=== PATIENT | female | born 1965 | race Caucasian/White ===

== ENCOUNTER 2017-07-03 10:03 | Outpatient (CLI) | payer OTHER, BC | END 2017-07-03 10:04 | disposition home or self-care (01) | LOC: BICRAD 10:03 | PROVIDERS: ATTEND Allergy & Immunology | DX: R05 Cough (principal) | CPT/HCPCS: 71046 ==

== ENCOUNTER 2017-07-21 15:04 | Outpatient (CLI) | payer OTHER, BC ==
[~2017-07-21 15:04] MED LIST: Iopamidol 370 76% 100 ML VIAL ONE
== END 2017-07-21 15:05 | disposition home or self-care (01) ==
LOC: BICCT 15:04
PROVIDERS: ATTEND Allergy & Immunology
DX: R05 Cough; K57.30 Diverticulosis of large intestine without perforation or abscess without bleeding; K76.0 Fatty (change of) liver, not elsewhere classified; J43.9 Emphysema, unspecified; I25.10 Atherosclerotic heart disease of native coronary artery without angina pectoris
CPT/HCPCS: 71260

== ENCOUNTER 2017-10-27 12:06 | Outpatient (CLI) | payer OTHER, BC | END 2017-10-27 12:07 | disposition home or self-care (01) | LOC: BICMAMMO 12:06 | PROVIDERS: ATTEND Physician Assistant | DX: Z12.31 Encounter for screening mammogram for malignant neoplasm of breast (principal); Z80.3 Family history of malignant neoplasm of breast | CPT/HCPCS: 77063; 77067 ==

== ENCOUNTER 2018-01-08 07:04 | Outpatient (CLI) | payer OTHER, BC | END 2018-01-08 07:05 | disposition home or self-care (01) | LOC: BICULT 07:04 | PROVIDERS: ATTEND Family Medicine | DX: R10.9 Unspecified abdominal pain (principal); K76.0 Fatty (change of) liver, not elsewhere classified | CPT/HCPCS: 76705 ==

== ENCOUNTER 2018-01-12 07:50 | Outpatient (CLI) | payer OTHER, BC ==
--- NOTE | 2018-01-12 14:35 | NM ---
HEPATOBILIARY SCAN: Date: 01/12/18 HISTORY: Unspecified abdominal pain. RADIOPHARMACEUTICAL: 5.2 mCi technetium-99m mebrofenin injected intravenously. FINDINGS: There is good tracer extraction by the liver with prompt excretion into the biliary tract and small l oops, and normal filling of the gallbladder. The calculated gallbladder ejection fraction following a n oral fatty meal measures 73%. IMPRESSION: Normal exam. POS: SHEREE
== END 2018-01-12 07:51 | disposition home or self-care (01) ==
LOC: NM 07:50
PROVIDERS: ATTEND Family Medicine
DX: R10.9 Unspecified abdominal pain (principal)
CPT/HCPCS: 78227; A9537

== ENCOUNTER 2018-06-12 07:37 | Outpatient (CLI) | payer OTHER, BC ==
--- NOTE | 2018-06-12 08:43 | CT ---
CT ABDOMEN AND PELVIS WITH CONTRAST: HISTORY: Left lower quadrant abdominal pain for a few months. History of diverticulitis. TECHNIQUE: Multiple contiguous axial images were obtained in a CT of the abdomen and pelvis with contrast. Coleman nal reformats were performed. FINDINGS: The liver, gallbladder, kidneys, adrenal glands, spleen, and pancreas are unremarkable. There are numerous scattered diverticula in the left colon. No free air, free fluid, or standing chu nges are seen in the abdomen or pelvis. The small bowel is normal in caliber. The appendix is blake l. No abdominal or pelvic lymphadenopathy is seen. The reproductive organs are unremarkable. Mild degenerative changes are seen in the spine. The visualized inferior thorax and abdominal wall s oft tissues are unremarkable. IMPRESSION: Diverticulosis without evidence of acute diverticulitis. POS: SHEREE
[2018-06-12] MEDS ORDERED: ISOVUE-370 76%-LOCM 1 ML ONE (09:58)
== END 2018-06-12 07:38 | disposition home or self-care (01) ==
LOC: BICCT 07:37
PROVIDERS: ATTEND Family Medicine
DX: K57.92 Diverticulitis of intestine, part unspecified, without perforation or abscess without bleeding (principal); K57.30 Diverticulosis of large intestine without perforation or abscess without bleeding
CPT/HCPCS: 74177

== ENCOUNTER 2018-10-23 08:24 | Outpatient (CLI) | payer OTHER, BC ==
--- NOTE | 2018-10-23 10:31 | CT ---
CT ABDOMEN AND PELVIS: HISTORY: Abdominal pain. Intermittent cramping x3 weeks. COMPARISON: 06/12/2018 TECHNIQUE: Multiple contiguous axial images were obtained in a CT of the abdomen and pelvis with IV contrast. C oronal reformats were performed. FINDINGS: Lower Chest: Within normal limits. Vessels: Normal caliber aorta. Heart: Normal heart size. Abdomen: Portal vein: Patent. Gallbladder: No calcified gallstones. Normal caliber wall. Liver: Within normal limits. Pancreas: Within normal limits. Spleen: Within normal limits. Adrenals: Within normal limits. Kidneys: Symmetric enhancement. No obstructive uropathy. Peritoneum: Small amount of fluid in the left paracolic gutter. No mesenteric mass, lymphadenopathy , or free air. Bowel: Limited evaluation due to lack of oral contrast administration. Unremarkable gastric mucosa and small bowel loops. Ileocecal junction is normal. Normal caliber appendix. Fatty replacement of the mucosa scattered throughout the colon. Findings are nonspecific. There is extensive divertic ulosis, predominantly in the left hemicolon. There is bowel wall thickening with pericolonic fat stranding and thickening of the sigmoid mesocolon and the sigmoid colon, compatible with diverticulit is. No evidence of abscess or perforation. Mesentery and Retroperitoneum: No enlarged mesenteric or retroperitoneal lymph nodes. Abdominal Wall: Within normal limits. Pelvis: Reproductive Organs: Uterus and adnexal structures are grossly unremarkable. Pelvis: There is a collection of partially enhancing fluid in the right aspect of the pelvis, measur ing 4.9 x 4.9 cm. Attenuation coefficient is 21 Hounsfield units, suggesting complex fluid. No evidence of air. Well-formed abscess is not appreciated at this time. An early developing infected fluid collection cannot be completely excluded. Bladder: Within normal limits. Bones: Within normal limits. IMPRESSION: 1. Diverticulitis. There are associated adjacent inflammatory changes. 2. Fluid collection the right hemipelvis, which may represent a reactive fluid collection. An early infected fluid collection cannot be completely excluded; however, a well-formed abscess containing air is not appreciated at this time. Results of study discussed with Dr. Perfecto Schwarz on 10/23/2018 at 10:29 a.m. CODE CR Transcribed Date/Time: 10/23/2018 10:42 AM
[2018-10-23] MEDS ORDERED: Iopamidol 370 76% 100 ML VIAL ONE (10:34)
== END 2018-10-23 08:25 | disposition home or self-care (01) ==
LOC: CT 08:24
PROVIDERS: ATTEND Family Medicine
DX: R10.9 Unspecified abdominal pain (principal); K57.92 Diverticulitis of intestine, part unspecified, without perforation or abscess without bleeding
CPT/HCPCS: 74177; Q9967

== ENCOUNTER 2018-11-16 08:10 | Outpatient (CLI) | payer OTHER, BC ==
--- NOTE | 2018-11-16 09:22 | CT ---
CT ABDOMEN WITH CONTRAST CT PELVIS WITH CONTRAST: DATE: 11/16/18 HISTORY: 53-year-old female with diverticulitis and intrapelvic abscess. Follow-up after antibiotic treatment. COMPARISON: 10/23/18. TECHNIQUE: IV injection of iodinated contrast media: 75 mL [id number]. Oral contrast media: Not administered. FINDINGS: Lung bases are grossly clear. No pneumoperitoneum. Atherosclerotic calcification without aneurysm of abdominal aorta and common iliac arteries. Essentially normal bilateral kidneys, adrenals, pancreas, liver, spleen, and appendix. No pneumoperitoneum. No small bowel dilation. Multiple diverticula throughout descending colon and sigmoid colon. Again noted is the fat stranding representing edema around the sigmoid colon. This has slightly improved. In addition to a tiny amount of free fluid around the sigmoid colon, there is a thin-walled intrapelvic fluid collection within t he right posterior aspect of the pelvic cavity. It was previously measured as 4.9 x 4.9 x 4.6 cm. Cur rent dimensions are 6.0 x 5.8 x 3.9 cm. Fat stranding surrounding this collection is minimal/mild. Th e fluid collection does not contain gas. Unremarkable urinary bladder. The current density of the int rapelvic fluid collection is 17 Hounsfield units. It may or may not be an abscess. IMPRESSION: 1. Sigmoid colonic diverticulitis, with mild improvement since 10/23/18. 2. Mild interval increase in volume of the right-sided intrapelvic fluid collection. JNR POS: CET
[2018-11-16] MEDS ORDERED: Iopamidol 370 76% 100 ML VIAL ONE (13:32)
== END 2018-11-16 08:11 | disposition home or self-care (01) ==
LOC: CT 08:10
PROVIDERS: ATTEND Physician Assistant Medical
DX: R10.9 Unspecified abdominal pain (principal); K57.32 Diverticulitis of large intestine without perforation or abscess without bleeding
CPT/HCPCS: 74177

== ENCOUNTER 2018-12-19 16:28 | Outpatient (CLI) | payer OTHER, BC ==
--- NOTE | 2018-12-20 08:10 | MMO ---
Bilateral MAMMO Bilat Screen [facility]. CLINICAL HISTORY: Patient is 53 years old and is seen for screening. The patient has the following family history of breast cancer: mother. The patient has no personal history of cancer. VIEWS: The views performed were: bilateral craniocaudal with tomosynthesis; bilateral mediolateral oblique with tomosynthesis; and right exaggerated craniocaudal. FILMS COMPARED: The present examination has been compared to prior imaging studies performed at [facility] on 07/11/2014, 07/21/2015, 08/03/2016 and 10/27/2017. MAMMOGRAM FINDINGS: The breasts are heterogeneously dense, which could obscure a lesion on mammography. There are stable benign appearing calcifications seen in both breasts. There are no suspicious masses, suspicious calcifications, or new areas of architectural distortion. IMPRESSION: THERE IS NO MAMMOGRAPHIC EVIDENCE OF MALIGNANCY. A ROUTINE FOLLOW-UP MAMMOGRAM IN 1 YEAR IS RECOMMENDED. THE RESULTS OF THIS EXAM WERE SENT TO THE PATIENT. ACR BI-RADS Category 2 - Benign finding MAMMOGRAPHY NOTE: 1. A negative mammogram report should not delay a biopsy if a dominant of clinically suspicious mass is present. 2. Approximately 10% to 15% of breast cancers are not detected by mammography. 3. Adenosis and dense breasts may obscure an underlying neoplasm. Reported by: DEVANTE CAVAZOS MD Electonically Signed: [id number]
== END 2018-12-19 16:29 | disposition home or self-care (01) ==
LOC: BICMAMMO 16:28
PROVIDERS: ATTEND Family Medicine
DX: Z12.31 Encounter for screening mammogram for malignant neoplasm of breast (principal); Z80.3 Family history of malignant neoplasm of breast
CPT/HCPCS: 77063; 77067

== ENCOUNTER 2019-01-16 11:35 | Inpatient (IN) | payer OTHER, BC ==
[2019-01-16] MEDS ORDERED: Ondansetron PF 4 MG/2 ML Vial SLOW IVP PRN (14:56)
[2019-01-16] MEDS ORDERED: Fentanyl 100 MCG/2 ML VIAL SLOW IVP PRN (14:57)
[2019-01-16] MEDS ORDERED: Sodium Chloride 0.9% 1,000 ML IV SCH (15:00)
[2019-01-16] MEDS ORDERED: Piperacillin/Tazobactam 3.375 GM in Sodium Chloride 0.9% 100 ML IVPB SCH (15:00)
[2019-01-16 15:56] LABS: #Basophils 0.1 thou/uL (0.0-0.2); #Eosinphils 0.1 thou/uL (0.0-0.7); #Lymphocytes 2.2 thou/uL (1.20-3.40); #Monocytes 0.9 thou/uL (0.11-0.59); #Neutrophils 9.8 thou/uL (1.40-6.50); %Basophils 0.9 % (0.0-1.0); %Eosinophils 0.8 % (0.0-10.0); %Lymphocytes 16.7 % (21.0-51.0); %Monocytes 7.1 % (0.0-10.0); %Neutrophils 74.5 % (42.0-75.0); Hemoglobin 14.9 g/dL (12.0-16.0); Mean Corpuscular HGB CONC 33.4 g/dL (32.0-36.0); Mean Corpuscular Volume 92.9 fL (78.0-98.0); Mean Platelet Volume 7.2 fL (7.4-10.4); Platelet Count 260 thou/uL (130-400); RBC Distribution Width 12.7 % (11.5-14.5); White Blood Cell (WBC) Count 13.2 thou/uL (4.8-10.8)
[2019-01-16 16:18] LABS: Anion Gap 12 mmol/L (10-20); BUN (Urea Nitrogen) 6 mg/dL (9.8-20.1); Calc. Creatinine Clearance 0 mL/min (70-130); Calcium 9.1 mg/dL (7.8-10.44); Carbon Dioxide 24 mmol/L (22-29); Chloride 102 mmol/L (98-107); Estimated GFR-MDRD 81; Glucose 80 mg/dL (70-105); Potassium 3.6 mmol/L (3.5-5.1); Sodium 134 mmol/L (136-145)
[2019-01-16 16:20] VITALS: BMI 32.5
[2019-01-16] MEDS: Acetaminophen 1,000 MG in Premix Bag 1 BAG IVPB PRN (16:53)
--- NOTE | 2019-01-16 16:57 | HP ---
CHIEF COMPLAINT: Diverticulitis. HISTORY OF PRESENT ILLNESS: This is a 53-year-old female with a history of acute diverticulitis. I recently saw in the office. She had had a couple of bouts of diverticulitis that would recur every time she stopped antibiotics. On followup CAT scan, she had a fluid collection in her pelvis. This was drained and it grew no bacteria. It was serous. No purulence. She did have improvement in her symptoms for a week or two. Pain returned late last week. Started back on Augmentin. Yesterday, her pain became more severe, described as 8/10, sharp in the left lower quadrant, associated with anorexia, nausea, but no vomiting, no change in stools. PAST MEDICAL HISTORY: Includes hyperlipidemia, anxiety, kidney stones, diverticulitis. SURGICAL HISTORY: Colonoscopy. MEDICATIONS: Medicines taken daily at home; 1. Zetia. 2. Cetirizine. 3. Alprazolam. 4. Augmentin. SOCIAL HISTORY: Former smoker. No alcohol. No drugs. REVIEW OF SYSTEMS: Ten-system review of systems otherwise negative unless described above. PHYSICAL EXAMINATION: HEENT: Sclerae are anicteric. Oropharynx is clear. NECK: No lymphadenopathy. CHEST: Clear. HEART: Regular rate and rhythm. ABDOMEN: Soft, tender in left lower quadrant with localized guarding. No rebound. No abdominal hernias. EXTREMITIES: No ischemia or edema to extremities. LABORATORY DATA: White blood cell count is 13, hemoglobin 14, normal differential. Sodium 134, potassium 3.6, creatinine 0.74. CT scan of the abdomen and pelvis is pending. ASSESSMENT: Acute on chronic diverticulitis. PLAN: Reassess her abdomen with CT scan. She may need to have surgery during this hospitalization. IV antibiotics for now. Job ID: [id number]
[2019-01-16] MEDS: Piperacillin/Tazobactam 3.375 GM in Sodium Chloride 0.9% 100 ML IVPB SCH (18:04)
[2019-01-16] MEDS: Sodium Chloride 0.9% 1,000 ML IV SCH (18:05)
[2019-01-16] MEDS: Fentanyl 100 MCG/2 ML VIAL SLOW IVP PRN ×2 (18:11→21:43)
--- NOTE | 2019-01-16 18:40 | CT ---
CT ABDOMEN WITH CONTRAST CT PELVIS WITH CONTRAST: DATE: 01/16/2019 HISTORY: 53 year old female with left lower quadrant abdominal pain and fever. COMPARISON: 11/16/2018 TECHNIQUE: IV injection of iodinated contrast media: administered. Oral contrast media:Administered FINDINGS: There is a new finding of fat stranding representing edema around proximal sigmoid colon, where there is mural thickening and fold thickening. Large number of diverticula throughout the descending and sigmoid colon. Previously demonstrated focal fluid collection within the pelvic cavity has almost completely resolve d. Minimal amount of free fluid in the pelvic cavity now. No abscess. Appendix is 7 mm in caliber. No periappendiceal fat stranding. Appendix appears to have diffuse mural thickening and no oral contrast material in its lumen. However, mural and fold thickening is also visualized in the cecum and lower ascending colon, and this may be an extension of the process into t he appendix rather than primary acute appendicitis. No small bowel dilation. No abdominal aortic aneurysm. Unremarkable bilateral kidneys, adrenals, panc reas, liver, and spleen. Lung bases are clear. Normal urinary bladder. IMPRESSION: 1. Recurrent acute diverticulitis involving proximal sigmoid colon. 2. Equivocal findings involving appendix. Recommend short-term follow-up.
[2019-01-16] MEDS ORDERED: ISOVUE-370 76%-LOCM 1 ML ONE (20:45)
[2019-01-16] MEDS: Pantoprazole 40 MG VIAL IVP SCH (21:36)
[2019-01-17] MEDS: Piperacillin/Tazobactam 3.375 GM in Sodium Chloride 0.9% 100 ML IVPB SCH ×5 (00:13→23:56)
[2019-01-17] MEDS: Sodium Chloride 0.9% 1,000 ML IV SCH ×4 (00:13→23:56)
[2019-01-17] MEDS ORDERED: FLU VACC QS2019-20(6MOS UP)/PF 60 MCG/0.5 ML SYRINGE IM ONE (09:00)
[2019-01-17] MEDS: Acetaminophen 1,000 MG in Premix Bag 1 BAG IVPB PRN (09:34)
--- NOTE | 2019-01-17 10:21 | PDOC.GSPN ---
Surgery Progress Note: Subj - Subjective Patient reports: feels better (but pain not completely gone) Surgery Progress Note: Obj - Vital signs Vital signs: Vital Signs - Most Recent Temp Pulse Resp BP Pulse Ox 98.2 F 87 16 114/70 94 L 01/17/19 07:30 01/17/19 07:30 01/17/19 07:30 01/17/19 07:30 01/17/19 07:30 - Physical Exam General: no distress Cardiovascular: regular rate and rhythm Respiratory: clear to auscultation Abdomen: soft, tender (in the left lower quadrant with guarding) Surgery Progress Note: Results - Labs Result Diagrams: 01/16/19 15:50 01/16/19 15:50 Surgery Progress Note: A/P - Problem (1) Diverticulitis Current Visit: Yes Code(s): K57.92 - DVTRCLI OF INTEST, PART UNSP, W/O PERF OR ABSCESS W/O BLEED Status: Chronic - Plan Plan: CT shows no abscess or perforation but I expect symptoms to continue to recur -Plan resection tomorrow if able. -Prep today if able to do tomorrow
[2019-01-17] MEDS ORDERED: Bisacodyl 5 MG TAB PO SCH (12:00)
[2019-01-17] MEDS ORDERED: Polyethylene Glycol 3350 17 GM Packet PO SCH (12:15)
--- NOTE | 2019-01-17 20:16 | EKG ---
Test Reason : Blood Pressure : / mmHG Vent. Rate : 081 BPM Atrial Rate : 081 BPM P-R Int : 120 ms QRS Dur : 070 ms QT Int : 368 ms P-R-T Axes : 066 051 051 degrees QTc Int : 427 ms Normal sinus rhythm Nonspecific T wave abnormality Abnormal ECG Confirmed by MAGALIE PAN, DR. Lozoya ([id number]) on 01/17/2019 8:16:09 PM Referred By: MARIELLA Confirmed By:DR. Devora MEJIAS MD
[2019-01-17] MEDS: Pantoprazole 40 MG VIAL IVP SCH (20:27)
[2019-01-18] MEDS: Piperacillin/Tazobactam 3.375 GM in Sodium Chloride 0.9% 100 ML IVPB SCH ×2 (05:36→18:46)
[2019-01-18] MEDS ORDERED: Acetaminophen 1,000 MG in Premix Bag 1 BAG IVPB PRN (06:55)
[2019-01-18] MEDS ORDERED: Bupivacaine HCl 0.5%/Epinephrine 1:200,000/PF 30 ml Vial ONE (10:50)
[2019-01-18] MEDS ORDERED: Midazolam HCl 2 mg/2 ml Vial ONE ×3 (11:32→12:53)
[2019-01-18] MEDS ORDERED: Fentanyl 100 MCG/2 ML VIAL ONE ×3 (11:32→12:53)
[2019-01-18] MEDS ORDERED: PROPOFOL 200 MG/20 ML VIAL ONE (11:35)
[2019-01-18] MEDS ORDERED: PHENYLEPHRINE-NS 100 MCG/ML 10 ML SYRINGE ONE (11:35)
[2019-01-18] MEDS ORDERED: Ketorolac Tromethamine 30 MG/ML VIAL ONE (11:35)
[2019-01-18] MEDS ORDERED: Dexamethasone 20 MG/5 ML VIAL ONE (11:35)
[2019-01-18] MEDS ORDERED: Lidocaine 1% PF 5 ML VIAL ONE (11:35)
[2019-01-18] MEDS ORDERED: Ondansetron PF 4 MG/2 ML Vial ONE (11:35)
[2019-01-18] MEDS ORDERED: Rocuronium Bromide 10 MG/ML (10ML VIAL) ONE (11:35)
[2019-01-18] MEDS ORDERED: Glycopyrrolate 0.2 MG/ML 5 ML SYRINGE ONE (11:35)
[2019-01-18] MEDS ORDERED: Dexamethasone 4 mg/ml Vial ONE (12:30)
[2019-01-18] MEDS ORDERED: HYDROmorphone 2 MG/ML VIAL SLOW IVP PRN (15:29)
[2019-01-18] MEDS ORDERED: PACU-Morphine 4MG/ML VIAL SLOW IVP PRN (15:29)
[2019-01-18] MEDS ORDERED: Promethazine HCl 25 MG/ML VIAL SLOW IVP PRN (15:29)
[2019-01-18] MEDS ORDERED: Ondansetron HCl/PF 4 MG/2 ML Vial IVP PRN (15:29)
[2019-01-18] MEDS ORDERED: Promethazine HCl 25 MG/ML VIAL IM PRN ×2 (15:29→15:43)
[2019-01-18] MEDS ORDERED: SUGAMMADEX SODIUM 200 MG/2 ML VIAL ONE (15:33)
[2019-01-18] MEDS ORDERED: Ketorolac Tromethamine 30 MG/ML VIAL IVP PRN (15:43)
[2019-01-18] MEDS ORDERED: Ondansetron PF 4 MG/2 ML Vial IVP PRN (15:43)
[2019-01-18] MEDS ORDERED: Fentanyl 100 MCG/2 ML VIAL SLOW IVP PRN (15:43)
[2019-01-18] MEDS ORDERED: hydrALAZINE 20 MG/ML VIAL SLOW IVP PRN (15:43)
[2019-01-18] MEDS: Sodium Chloride 0.9% 1,000 ML IV SCH ×2 (16:59→18:46)
[2019-01-18] MEDS: cefOXitin Sodium/Dextrose,Iso 1 GM in Premix Bag 50 BAG IVPB SCH (17:00)
[2019-01-18] MEDS: Fentanyl 100 MCG/2 ML VIAL SLOW IVP PRN ×3 (17:01→20:56)
[2019-01-18] MEDS: Acetaminophen 1,000 MG in Premix Bag 1 BAG IVPB SCH (18:14)
--- NOTE | 2019-01-18 19:28 | OP ---
DATE OF PROCEDURE: 01/18/2019 PREOPERATIVE DIAGNOSIS: Acute on chronic diverticulitis. POSTOPERATIVE DIAGNOSIS: Acute on chronic diverticulitis. PROCEDURES PERFORMED: Laparoscopic converted to open sigmoid colectomy with low anterior anastomosis, splenic flexure mobilization. ANESTHESIA: General. ESTIMATED BLOOD LOSS: 200 mL. COMPLICATIONS: None. FINDINGS: Significant local inflammatory change in the pelvis. DESCRIPTION OF PROCEDURE: The patient was taken to the operating room and laid supine on the operating table. After general anesthetic was obtained, the abdomen was shaved, prepped, and draped in a sterile fashion. The patient had been placed in lithotomy and a Jones was placed. Left subcostal 5 mm Optiview trocar was placed in the usual fashion. High-flow pneumoperitoneum was obtained. Left lower quadrant 5 mm port was placed. The omentum was not able to be retracted out of the pelvis even after placing the patient in Trendelenburg position due to the dense inflammatory adhesions. Decision made to open, midline incision was made. Cautery dissected down into the abdominal cavity. Bookwalter retractor was placed. Left colon was mobilized along the white line of Toldt. The ureter was found and excluded from the dissection. Dissection was taken down into the pelvis where some dense adhesions were taken down from the posterior uterus and the left pelvic sidewall. The left ureter was found and excluded from all this dissection and not injured. Dissection was taken down into the pelvis and the upper rectum was mobilized by using cautery. A stapler was fired across the upper rectum. The mesentery for the colon including the superior rectal and the inferior mesenteric artery all taken using the Impact LigaSure. The colon was mobilized up along the white line of Toldt and the splenic flexure was mobilized in the usual fashion. There was a small tear in the serosa of the spleen that was managed with Surgicel and Gil. The distal transverse colon was able to brought down in the pelvis under no tension. Colotomy was made just distal to this and the 31 anvil passed proximally, its sharp end brought down on the antimesenteric surface of the colon above. Reload on the stapler was fired just distal to this. This was able to reach down in the pelvis under no tension. The base of the EEA was brought up through the anus and its sharp end brought down on the antimesenteric surface of the rectal stump below, connected to the stapler from above and this was fired forming the anastomosis. The anastomosis was tested using air insufflation under water. There was no leakage. The anastomosis was oversewn using silk pop offs. The abdomen was irrigated. There was no ongoing bleeding. All instrument counts, needle counts, and lap counts were correct. Seprafilm was placed in the abdomen and the fascia was closed using #1 PDS from the top and the bottom tied in the middle. Subcutaneous tissues were irrigated and closed using 3-0 Vicryl, 4-0 Monocryl, and Dermabond. The patient was sent to Recovery in stable condition. All instrument counts, needle counts, and lap counts were correct. Job ID: [id number]
[2019-01-18] MEDS: Famotidine/PF 20 mg/2ml Vial SLOW IVP SCH (20:56)
[2019-01-18] MEDS: Famotidine 20 MG TAB PO SCH (21:01)
[2019-01-18] MEDS ORDERED: diphenhydrAMINE 50 MG/ML VIAL IVP PRN (21:59)
[2019-01-18] MEDS: fentaNYL Citrate/PF 2,000 MCG in Sodium Chloride 0.9% 60 ML IV PRN (22:26)
[2019-01-19] MEDS: cefOXitin Sodium/Dextrose,Iso 1 GM in Premix Bag 50 BAG IVPB SCH (00:46)
[2019-01-19] MEDS: Acetaminophen 1,000 MG in Premix Bag 1 BAG IVPB SCH ×3 (00:46→12:52)
[2019-01-19] MEDS ORDERED: Ketorolac Tromethamine 30 MG/ML VIAL IVP SCH ×2 (02:00→10:00)
[2019-01-19] MEDS: Sodium Chloride 0.9% 1,000 ML IV SCH (02:07)
[2019-01-19 04:45] LABS: #Lymphocytes 1.2 thou/uL (1.20-3.40); #Neutrophils 8.2 thou/uL (1.40-6.50); %Basophils 0.1 % (0.0-1.0); %Eosinophils 0.2 % (0.0-10.0); %Lymphocytes 11.4 % (21.0-51.0); %Monocytes 9.6 % (0.0-10.0); %Neutrophils 78.7 % (42.0-75.0); Hemoglobin 11.4 g/dL (12.0-16.0); Mean Corpuscular Hemoglobin 31.8 pg (27.0-31.0); Mean Corpuscular Volume 93.6 fL (78.0-98.0); Mean Platelet Volume 7.2 fL (7.4-10.4); Platelet Count 257 thou/uL (130-400); RBC Distribution Width 12.5 % (11.5-14.5); Red Blood Cell (RBC) Count 3.59 mill/uL (4.20-5.40); White Blood Cell (WBC) Count 10.4 thou/uL (4.8-10.8)
[2019-01-19 05:04] LABS: Anion Gap 16 mmol/L (10-20); BUN (Urea Nitrogen) 6 mg/dL (9.8-20.1); Calc. Creatinine Clearance 117 mL/min (70-130); Calcium 7.8 mg/dL (7.8-10.44); Carbon Dioxide 15 mmol/L (22-29); Chloride 110 mmol/L (98-107); Estimated GFR-MDRD Greater than 90; Glucose 99 mg/dL (70-105); Potassium 3.6 mmol/L (3.5-5.1); Sodium 137 mmol/L (136-145)
[2019-01-19] MEDS ORDERED: Sodium Chloride 0.9% 1,000 ML IV SCH (07:53)
[2019-01-19] MEDS: Famotidine 20 MG TAB PO SCH ×2 (08:17→20:12)
[2019-01-19] MEDS: Famotidine/PF 20 mg/2ml Vial SLOW IVP SCH ×2 (08:19→20:12)
--- NOTE | 2019-01-19 09:51 | PRG ---
DATE OF SERVICE: 01/19/2019 SUBJECTIVE: Postop day #1, Ms. Manriquez is having pain, but it is controlled with the [employer]. She has already walked this morning. No significant nausea. She is tolerating clear liquid diet without difficulty. OBJECTIVE: VITAL SIGNS: She is afebrile. Vital signs are stable. ABDOMEN: Soft, minimally distended. Midline incision, healing well. LABORATORY DATA: White blood cell count is 10 and hemoglobin 11. Creatinine is 0.67. ASSESSMENT: Postop day #1, sigmoid colectomy with anastomosis. PLAN: Advance to full liquid diet. TKO IV fluids. Probably home tomorrow or Monday. Job ID: [id number]
[2019-01-20] MEDS: fentaNYL Citrate/PF 2,000 MCG in Sodium Chloride 0.9% 60 ML IV PRN (04:28)
[2019-01-20] MEDS: Famotidine 20 MG TAB PO SCH ×2 (08:13→20:09)
[2019-01-20] MEDS: Famotidine/PF 20 mg/2ml Vial SLOW IVP SCH (08:22)
[2019-01-20] MEDS ORDERED: HYDROcodone/Acetaminophen 10/325 mg Tablet PO PRN ×3 (09:59→10:03)
[2019-01-20] MEDS: HYDROcodone/Acetaminophen 10/325 mg Tablet PO PRN ×3 (10:33→20:18)
--- NOTE | 2019-01-20 10:34 | PRG ---
DATE OF SERVICE: 01/20/2019 SUBJECTIVE: She is doing well. She tolerated the full liquid diet. She has some mild bloating. OBJECTIVE: VITAL SIGNS: She is afebrile. Vital signs are stable. ABDOMEN: Soft and nontender. Her wounds are healing well. ASSESSMENT: Postop day 2, sigmoid colectomy. 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 Discontinue IV fluids. Stay on full liquid diet. Likely home tomorrow if tolerates. Job ID: [id number]
[2019-01-20] MEDS: Enoxaparin Sodium 40 MG/0.4 ML SYRINGE SC SCH (20:09)
[2019-01-21] MEDS: HYDROcodone/Acetaminophen 10/325 mg Tablet PO PRN ×2 (02:09→08:11)
[2019-01-21] MEDS: Piperacillin/Tazobactam 3.375 GM in Sodium Chloride 0.9% 100 ML IVPB SCH ×2 (02:50→08:11)
[2019-01-21 06:09] LABS: #Basophils 0.1 thou/uL (0.0-0.2); #Eosinphils 0.3 thou/uL (0.0-0.7); #Lymphocytes 2.8 thou/uL (1.20-3.40); #Monocytes 0.8 thou/uL (0.11-0.59); #Neutrophils 5.6 thou/uL (1.40-6.50); %Basophils 0.8 % (0.0-1.0); %Eosinophils 2.7 % (0.0-10.0); %Lymphocytes 29.9 % (21.0-51.0); %Neutrophils 58.6 % (42.0-75.0); Mean Corpuscular HGB CONC 33.9 g/dL (32.0-36.0); Mean Corpuscular Hemoglobin 31.3 pg (27.0-31.0); Mean Corpuscular Volume 92.3 fL (78.0-98.0); Mean Platelet Volume 7.1 fL (7.4-10.4); Platelet Count 286 thou/uL (130-400); RBC Distribution Width 12.8 % (11.5-14.5); Red Blood Cell (RBC) Count 3.51 mill/uL (4.20-5.40); White Blood Cell (WBC) Count 9.5 thou/uL (4.8-10.8)
[2019-01-21] MEDS: Famotidine 20 MG TAB PO SCH ×2 (08:10→20:19)
--- NOTE | 2019-01-21 09:17 | PDOC.GSPN ---
Surgery Progress Note: Subj - Subjective Patient reports: positive flatus, pain well controlled (2/ with hydrocodone), tolerating liquids well (Has moved onto thick liquids since Monday night - low appetite but eating a few bites at each meal) Narrative: Pt is s/p sigmoid colectomy for chronic diverticulitis and is post-op day 3. Patient has done well advancing diet on liquids, and has begun to pass flatus since yesterday. She still has not had a BM post-surgery. Pt also developed red area with warmth spreading out from the right edge of the suture line yesterday , for which she was started on Zosyn by the night team. Pt denies fevers or chills. Pt continues to ambulate several times per day, and has no urinary complaints or difficulty. Surgery Progress Note: Obj - Vital signs Vital signs: Vital Signs - Most Recent Temp Pulse Resp BP Pulse Ox 98.4 F 89 20 146/78 H 95 01/21/19 04:00 01/21/19 04:00 01/21/19 04:00 01/21/19 04:00 01/21/19 04:00 - Physical Exam General: no distress Cardiovascular: regular rate and rhythm Respiratory: clear to auscultation, normal expansion, normal respiratory effort , breath sounds present Abdomen: soft, nondistended, positive bowel sounds (Low rumbling BS present.), appropriately tender Wound: erythma/edema (There is an irregular erythematous area flush with the skin spreading from the right edge of the wound. Wound care is following, and the area is slightly extended from where they last marked the edges overnight. The area is warm to the touch. No induration or edema noted.) Surgery Progress Note: Results - Labs Result Diagrams: 01/21/19 05:39 01/19/19 04:32 Lab results: Laboratory Results - last 24 hr 01/21/19 05:39 WBC 9.5 RBC 3.51 L Hgb 11.0 L Hct 32.4 L MCV 92.3 MCH 31.3 H MCHC 33.9 RDW 12.8 Plt Count 286 MPV 7.1 L Neutrophils % 58.6 Lymphocytes % 29.9 Monocytes % 8.0 Eosinophils % 2.7 Basophils % 0.8 Neutrophils # 5.6 Lymphocytes # 2.8 Monocytes # 0.8 H Eosinophils # 0.3 Basophils # 0.1 Surgery Progress Note: A/P - Problem (1) Diverticulitis Current Visit: Yes Code(s): K57.92 - DVTRCLI OF INTEST, PART UNSP, W/O PERF OR ABSCESS W/O BLEED Status: Chronic - Plan Plan: Pt is s/p sigmoid colectomy without colostomy. Pt has developed an erythematous area with warmth from the entire right edge of the midline sutures, for which she has been started on zosyn x 1 day. She has not spiked any fevers, and WBC count is WNL. Bowel sounds are reassuring, and pt has begun to pass flatus. Full liquids are tolerated well. Plan: -Continue zosyn and wound care for monitoring the erythema related to suture line -Continue full liquid diet and plan to advance as tolerated -OOB/Ambulate Addendum - Physician - Physician Attestation Date/Time: 01/21/19 1041 I personally performed or re-performed the physical examination and medical decision making. I have verified all student documentation or findings, including history, physical exam and/or medical decision making. Because she is taking PO now and tolerating will DC zosyn and start levaquin. There is no evidence of wound infection. This erythema could be localized trauma coming from right lower quadrant port or developing echymosis from retraction. Will watch closely.
[2019-01-21] MEDS ORDERED: HYDROcodone/Acetaminophen 7.5/325 mg Tablet PO PRN (10:39)
[2019-01-21] MEDS ORDERED: Fentanyl 100 MCG/2 ML VIAL SLOW IVP PRN (10:39)
[2019-01-21] MEDS: HYDROcodone/Acetaminophen 7.5/325 mg Tablet PO PRN ×2 (13:47→20:18)
[2019-01-21 16:44] VITALS: BP 147/78; TEMP 97.6
[2019-01-21] MEDS: Enoxaparin Sodium 40 MG/0.4 ML SYRINGE SC SCH (20:19)
[2019-01-22] MEDS: HYDROcodone/Acetaminophen 7.5/325 mg Tablet PO PRN ×2 (02:20→08:18)
[2019-01-22] MEDS: Famotidine 20 MG TAB PO SCH (08:19)
--- NOTE | 2019-01-22 09:13 | PDOC.GSPN ---
Surgery Progress Note: Subj - Subjective Patient reports: no new complaints, positive flatus, pain well controlled, tolerating liquids well, no bowel movement Narrative: Doing well s/p sigmoid colectomy. Pain improved today vs yesterday. No BM yet, but passing flatus. Reports previously noted abdominal erythema has resolved. Feels ready to d/c home today. Surgery Progress Note: Obj - Vital signs Vital signs: Vital Signs - Most Recent Temp Pulse Resp BP Pulse Ox 97.6 F 82 16 147/78 H 97 01/21/19 16:42 01/21/19 16:42 01/21/19 16:42 01/21/19 16:42 01/21/19 20:00 - Physical Exam General: no distress, well developed, well nourished Cardiovascular: regular rate and rhythm Respiratory: clear to auscultation, normal expansion, normal respiratory effort , breath sounds present Abdomen: appropriately tender Hernia: none Wound: healing well, other (Surgical wounds well-approximated & without erythema , exudate, flucuance. Faint oren-wound ecchymosis noted.) Surgery Progress Note: Results - Labs Result Diagrams: 01/21/19 05:39 01/19/19 04:32 Surgery Progress Note: A/P - Problem (1) Diverticulitis Current Visit: Yes Code(s): K57.92 - DVTRCLI OF INTEST, PART UNSP, W/O PERF OR ABSCESS W/O BLEED Status: Chronic - Plan Plan: Doing well s/p sigmoid colectomy for recurrent diverticulitis. Abdominal erythema noted yesterday now completely resolved. Will plan for d/c home today. Advance diet as tolerated.
--- NOTE | 2019-01-22 10:27 | PDOC.GSPN ---
Surgery Progress Note: Subj - Subjective Patient reports: feels better Surgery Progress Note: Obj - Vital signs Vital signs: Vital Signs - Most Recent Temp Pulse Resp BP Pulse Ox 97.6 F 82 16 147/78 H 97 01/21/19 16:42 01/21/19 16:42 01/21/19 16:42 01/21/19 16:42 01/21/19 20:00 - Physical Exam General: no distress Neck: no bruits Cardiovascular: regular rate and rhythm Respiratory: clear to auscultation Abdomen: soft, nondistended, appropriately tender Wound: healing well Surgery Progress Note: Results - Labs Result Diagrams: 01/21/19 05:39 01/19/19 04:32 Surgery Progress Note: A/P - Problem (1) Diverticulitis Current Visit: Yes Code(s): K57.92 - DVTRCLI OF INTEST, PART UNSP, W/O PERF OR ABSCESS W/O BLEED Status: Chronic - Plan Plan: Doing well. -DC home -milk of mag if no bm by tomorrow
== END 2019-01-22 13:00 | disposition home or self-care (01) | DRG 331 ==
LOC: SURG A 14:34
PROVIDERS: ADMIT Surgery; ATTEND Surgery
PROC: 0DTN0ZZ Resection of Sigmoid Colon, Open Approach (ICD-10-PCS; principal; 2019-01-18)
PROC: 0DJD4ZZ Inspection of Lower Intestinal Tract, Percutaneous Endoscopic Approach (ICD-10-PCS; 2019-01-18)
DX: K57.32 Diverticulitis of large intestine without perforation or abscess without bleeding (principal); E66.9 Obesity, unspecified; R63.0 Anorexia; K66.0 Peritoneal adhesions (postprocedural) (postinfection); L53.8 Other specified erythematous conditions; Z53.31 Laparoscopic surgical procedure converted to open procedure; Z87.891 Personal history of nicotine dependence; Z79.899 Other long term (current) drug therapy; Z68.32 Body mass index [BMI] 32.0-32.9, adult; Z88.8 Allergy status to other drugs, medicaments and biological substances
CPT/HCPCS: 36415; 36416; 74177; 80048; 85025; 88307; 90471; 90686; 93005; 93010; C9113; G0008; J0131; J0670; J0694; J1100; J1650; J1885; J2001; J2250; J2405; J2543; J2704; J3010; J3490; Q9966; S0028

== ENCOUNTER 2019-12-24 12:11 | Outpatient (CLI) | payer OTHER, BC ==
--- NOTE | 2019-12-24 14:07 | MMO ---
Bilateral MAMMO Bilat Screen [facility]. CLINICAL HISTORY: Patient is 54 years old and is seen for screening. The patient has the following family history of breast cancer: mother. The patient has no personal history of cancer. VIEWS: The views performed were: bilateral craniocaudal with tomosynthesis and bilateral mediolateral oblique with tomosynthesis. FILMS COMPARED: The present examination has been compared to prior imaging studies performed at [facility] on 07/21/2015, 08/03/2016, 10/27/2017 and 12/19/2018. This study has been interpreted with the assistance of computer-aided detection. MAMMOGRAM FINDINGS: There are scattered fibroglandular densities. Benign calcifications are noted bilaterally. There are no suspicious masses, suspicious calcifications, or new areas of architectural distortion. IMPRESSION: THERE IS NO MAMMOGRAPHIC EVIDENCE OF MALIGNANCY. A ROUTINE FOLLOW-UP MAMMOGRAM IN 1 YEAR IS RECOMMENDED. THE RESULTS OF THIS EXAM WERE SENT TO THE PATIENT. ACR BI-RADS Category 2 - Benign finding MAMMOGRAPHY NOTE: 1. A negative mammogram report should not delay a biopsy if a dominant of clinically suspicious mass is present. 2. Approximately 10% to 15% of breast cancers are not detected by mammography. 3. Adenosis and dense breasts may obscure an underlying neoplasm. Reported by: ANAY GOMEZ MD Electonically Signed: [id number]
== END 2019-12-24 12:12 | disposition home or self-care (01) ==
LOC: BICMAMMO 12:11
PROVIDERS: ATTEND Physician Assistant
DX: Z12.31 Encounter for screening mammogram for malignant neoplasm of breast (principal); Z80.3 Family history of malignant neoplasm of breast
CPT/HCPCS: 77063; 77067

== ENCOUNTER 2020-01-13 07:54 | Outpatient (CLI) | payer OTHER, BC ==
[2020-01-13 16:17] LABS: #Basophils 0.2 thou/uL (0.0-0.2); #Eosinphils 0.2 thou/uL (0.0-0.7); #Lymphocytes 3.7 thou/uL (1.20-3.40); #Monocytes 0.8 thou/uL (0.11-0.59); #Neutrophils 3.9 thou/uL (1.40-6.50); %Basophils 2.1 % (0.0-1.0); %Eosinophils 2.7 % (0.0-10.0); %Lymphocytes 41.9 % (21.0-51.0); %Monocytes 9.1 % (0.0-10.0); %Neutrophils 44.1 % (42.0-75.0); Hemoglobin 14.8 g/dL (12.0-16.0); Mean Corpuscular HGB CONC 32.9 g/dL (32.0-36.0); Mean Corpuscular Volume 97.1 fL (78.0-98.0); Platelet Count 249 thou/uL (130-400); RBC Distribution Width 12.6 % (11.5-14.5); Red Blood Cell (RBC) Count 4.63 mill/uL (4.20-5.40); White Blood Cell (WBC) Count 8.8 thou/uL (4.8-10.8)
[2020-01-13 16:51] LABS: Anion Gap 13 mmol/L (10-20); BUN (Urea Nitrogen) 13 mg/dL (9.8-20.1); Calc. Creatinine Clearance 0 mL/min (70-130); Calcium 8.9 mg/dL (7.8-10.44); Carbon Dioxide 25 mmol/L (22-29); Chloride 106 mmol/L (98-107); Estimated GFR-MDRD 76; Glucose 96 mg/dL (70-105); Potassium 4.6 mmol/L (3.5-5.1); Sodium 139 mmol/L (136-145)
[2020-01-14 14:56] LABS: SARS-CoV-2 MS2 Positive; SARS-CoV-2 N Gene Negative; SARS-CoV-2 S Gene Negative; SARS-CoV-2 by NAA Not Detected (NotDetected); SARS-CoV-2 orf1ab Negative
== END 2020-01-13 07:55 | disposition home or self-care (01) ==
LOC: LABBT 07:54
PROVIDERS: ATTEND Surgery
DX: Z01.812 Encounter for preprocedural laboratory examination (principal); Z20.828 Contact with and (suspected) exposure to other viral communicable diseases; K43.2 Incisional hernia without obstruction or gangrene
CPT/HCPCS: 80048; 85025; 87635; U0003

== ENCOUNTER 2020-01-16 06:09 | Day surgery (SDC) | payer OTHER, BC ==
[2020-01-14 10:37] VITALS: BMI 34.0
[2020-01-16] MEDS ORDERED: Fentanyl 100 MCG/2 ML VIAL ONE ×3 (06:32→09:42)
[2020-01-16] MEDS ORDERED: HYDROmorphone 0.5 MG/0.5 ML SYRINGE ONE (06:32)
[2020-01-16] MEDS ORDERED: Bupivacaine/Epinephrine 0.25% 30 ML VIAL ONE (06:37)
[2020-01-16] MEDS ORDERED: Midazolam HCl 2 mg/2 ml Vial ONE (07:21)
--- NOTE | 2020-01-16 09:41 | OP ---
DATE OF PROCEDURE: 01/16/2020 PREOPERATIVE DIAGNOSIS: Incisional hernia. POSTOPERATIVE DIAGNOSIS: Incisional hernia x2. PROCEDURE PERFORMED: Da Clifford laparoscopic incisional hernia repair with mesh, 8 x 10 cm and 7 cm. ANESTHESIA: General. ESTIMATED BLOOD LOSS: Minimal. COMPLICATIONS: None. FINDINGS: There is a hernia in the supraumbilical abdomen and a hernia in the infraumbilical abdomen. DESCRIPTION OF PROCEDURE: The patient was taken to the operating room and laid supine on the operating room table. After general anesthetic was obtained, a Jones was placed. The abdomen was shaved, prepped, and draped in a sterile fashion. Left subcostal 5-mm Optiview trocar placed in the usual fashion without injury and high-flow pneumoperitoneum was obtained. An 11-mm balloon camera port was placed in the right lateral abdomen. Two right abdominal 8-mm robot trocars were placed. All ports were docked to the robot. Surgeon goes to the console. All adhesions were taken down posteriorly. There was a longer defect in the low abdomen and a smaller defect at the level of the falciform ligament. The posterior fat and peritoneum were taken down, exposing the posterior fascia in both areas. A #1 V-Loc was used to close the fascial defect of the lower incision, 0 V-Loc was used to close the fascial defect in the upper. An 8 x [address] mesh was brought into the sterile field. The exposed mesh portion was placed against the posterior fascia in the lower abdomen. The nonadherent barrier was left down against the abdominal contents. A 2-0 V-Loc was used to sew the mesh to the posterior fascia circumferentially. A 7-cm bishop paiute of mesh was brought in and placed over the upper repair and sewn to the posterior fascia in the same way using 2-0 V-Loc suture. All 4 needles were removed from the abdomen and accounted for. All port sites were infiltrated using local anesthetic. All ports were removed under camera visualization. Pneumoperitoneum was let down. Incisions were irrigated and closed using 4-0 Monocryl and Dermabond. The patient was sent to Recovery in stable condition. All instrument counts, needle counts, and lap counts were correct. Job ID: [id number]
[2020-01-16] MEDS ORDERED: HYDROcodone/Acetaminophen 5/325 mg Tablet ONE ×2 (10:41→11:14)
[2020-01-16] MEDS ORDERED: Ondansetron PF 4 MG/2 ML Vial ONE (10:43)
[2020-01-16] MEDS ORDERED: Lidocaine 1% PF 5 ML VIAL ONE (10:43)
[2020-01-16] MEDS ORDERED: Rocuronium Bromide 10 MG/ML (10ML VIAL) ONE (10:43)
[2020-01-16] MEDS ORDERED: Ketorolac Tromethamine 30 MG/ML VIAL ONE (10:43)
[2020-01-16] MEDS ORDERED: PROPOFOL 200 MG/20 ML VIAL ONE (10:43)
[2020-01-16] MEDS ORDERED: Dexamethasone 20 MG/5 ML VIAL ONE (10:43)
[2020-01-16] MEDS ORDERED: Glycopyrrolate 0.2 MG/ML 5 ML SYRINGE ONE (10:43)
[2020-01-16] MEDS ORDERED: PHENYLEPHRINE-NS 100 MCG/ML 10 ML SYRINGE ONE (10:43)
[2020-01-16] MEDS ORDERED: Morphine 2 MG/ML VIAL ONE (12:39)
== END 2020-01-16 14:10 | disposition home or self-care (01) ==
LOC: SDC 06:09
PROVIDERS: ATTEND Surgery
PROC: 0WUF4JZ Supplement Abdominal Wall with Synthetic Substitute, Percutaneous Endoscopic Approach (ICD-10-PCS; principal; 2020-01-16)
DX: K43.2 Incisional hernia without obstruction or gangrene (principal); E78.5 Hyperlipidemia, unspecified; F41.9 Anxiety disorder, unspecified; Z79.899 Other long term (current) drug therapy; Z87.891 Personal history of nicotine dependence; Z88.8 Allergy status to other drugs, medicaments and biological substances; Z90.49 Acquired absence of other specified parts of digestive tract
CPT/HCPCS: C1781; J0690; J1100; J1170; J1885; J2250; J2270; J2405; J2704; J3010

== ENCOUNTER 2020-12-28 15:39 | Outpatient (CLI) | payer OTHER, BC | END 2020-12-28 15:40 | disposition home or self-care (01) | LOC: BICMAMMO 15:39 | PROVIDERS: ATTEND Nurse Practitioner Family | DX: Z12.31 Encounter for screening mammogram for malignant neoplasm of breast (principal); Z80.3 Family history of malignant neoplasm of breast | CPT/HCPCS: 77063; 77067 ==

== ENCOUNTER 2021-12-30 07:53 | Outpatient (CLI) | payer BC | END 2021-12-30 07:54 | disposition home or self-care (01) | LOC: BICMAMMO 07:53 | PROVIDERS: ATTEND Family Medicine | DX: Z12.31 Encounter for screening mammogram for malignant neoplasm of breast (principal); Z80.3 Family history of malignant neoplasm of breast | CPT/HCPCS: 77063; 77067 ==

== ENCOUNTER 2022-05-18 15:04 | Outpatient (CLI) | payer BC | END 2022-05-18 15:05 | disposition home or self-care (01) | LOC: RAD 15:04 | PROVIDERS: ATTEND Family Medicine | DX: J18.9 Pneumonia, unspecified organism (principal) | CPT/HCPCS: 71046 ==

== ENCOUNTER 2024-05-15 10:21 | Inpatient (IN) | payer BC ==
[2024-05-15 11:38] VITALS: BMI 33.2
[2024-05-15] MEDS ORDERED: Bisacodyl 5 MG TAB PO PRN (11:57)
[2024-05-15] MEDS ORDERED: Acetaminophen 650 MG Suppository PR PRN (11:57)
[2024-05-15] MEDS ORDERED: Senokot S 8.6-50 MG TAB PO PRN (11:57)
[2024-05-15] MEDS ORDERED: Ondansetron ODT 4 MG TAB PO PRN (11:57)
[2024-05-15] MEDS ORDERED: Ondansetron PF 4 MG/2 ML Vial IVP PRN (11:57)
[2024-05-15] MEDS ORDERED: Albuterol 2.5 MG (3 mL) NEB NEB PRN (11:57)
[2024-05-15] MEDS: Azithromycin 500 MG in Sodium Chloride 0.9% 250 ML 250 ML IVPB SCH (12:08)
[2024-05-15] MEDS: Acetaminophen 325 MG TAB PO PRN (12:21)
[2024-05-15] MEDS: methylPREDNISolone Sod Succ 40 MG VIAL IVP SCH (12:21)
[2024-05-15] MEDS ORDERED: cefTRIAXone\\ROCEPHIN 1 GM in Sodium Chloride 0.9% 100 ML IVPB SCH (14:00)
[2024-05-15] MEDS ORDERED: Benzonatate 100 MG CAP PO PRN (14:52)
[2024-05-15] MEDS: Ipratropium/Albuterol 3 ML NEB NEB SCH (15:15)
[2024-05-15] MEDS: guaiFENesin ER 600 MG TAB PO SCH ×2 (15:16→21:01)
[2024-05-15] MEDS: FLU (Fluarix Triv) TS24-25(6MOS UP)/PF 45 MCG/0.5 ML Syringe IM ONE (15:57)
[2024-05-15] MEDS: Melatonin 3 MG TAB PO PRN (21:03)
[2024-05-15] MEDS: ALPRAZolam 0.25 MG TAB PO PRN (21:03)
[2024-05-16] MEDS: Azithromycin 500 MG in Sodium Chloride 0.9% 250 ML 250 ML IVPB SCH (05:28)
[2024-05-16 07:27] LABS: #Basophils Less than 0.03 10x3/uL (0.0-0.2); #Eosinophils Less than 0.03 10x3/uL (0.0-0.7); %Basophils 0.1 % (0.0-1.0); %Lymphocytes 11.2 % (21.0-51.0); %Monocytes 3.7 % (0.0-10.0); %Neutrophils 84.5 % (42.0-75.0); Hematocrit 39.6 % (36.0-47.0); Hemoglobin 13.1 g/dL (12.0-16.0); Mean Corpuscular HGB CONC 33.1 g/dL (32.0-36.0); Mean Corpuscular Hemoglobin 30.9 pg (27.0-31.0); Mean Corpuscular Volume 93.4 fL (78.0-98.0); Mean Platelet Volume 9.8 fL (7.4-10.4); Platelet Count 203 10x3/uL (130-400); RBC Distribution Width 14.6 % (11.5-14.5); Red Blood Cell (RBC) Count 4.24 mill/uL (4.20-5.40)
[2024-05-16 07:55] LABS: Anion Gap 14 mmol/L (10-20); BUN (Urea Nitrogen) 11 mg/dL (9.8-20.1); Calc. Creatinine Clearance 107 mL/min (70-130); Calcium 8.4 mg/dL (7.8-10.44); Carbon Dioxide 22 mmol/L (22-29); Chloride 108 mmol/L (98-107); Estimated GFR 100; Glucose 199 mg/dL (70-105); Sodium 140 mmol/L (136-145)
[2024-05-16] MEDS: Ezetimibe 10 MG TAB PO SCH (08:00)
[2024-05-16] MEDS: Loratadine 10 MG TAB PO SCH (08:00)
[2024-05-16] MEDS: cefTRIAXone\\ROCEPHIN 1 GM in Sodium Chloride 0.9% 100 ML IVPB SCH (08:01)
[2024-05-16] MEDS: Sertraline 100 MG TAB PO SCH (08:01)
[2024-05-16] MEDS: Enoxaparin 40 MG (0.4 mL) SYRINGE SC SCH (08:01)
[2024-05-16] MEDS: Fluticasone Propionate Nasal Spray 16 gm Bottle NASAL SCH (08:01)
[2024-05-17 05:34] LABS: #Basophils Less than 0.03 10x3/uL (0.0-0.2); #Eosinophils Less than 0.03 10x3/uL (0.0-0.7); %Lymphocytes 9.8 % (21.0-51.0); %Monocytes 5.9 % (0.0-10.0); %Neutrophils 83.6 % (42.0-75.0); Hematocrit 38.1 % (36.0-47.0); Hemoglobin 12.7 g/dL (12.0-16.0); Mean Corpuscular HGB CONC 33.3 g/dL (32.0-36.0); Mean Corpuscular Volume 92.9 fL (78.0-98.0); Mean Platelet Volume 9.9 fL (7.4-10.4); Platelet Count 221 10x3/uL (130-400); RBC Distribution Width 14.6 % (11.5-14.5)
[2024-05-17 05:45] LABS: Anion Gap 15 mmol/L (10-20); BUN (Urea Nitrogen) 13 mg/dL (9.8-20.1); Calc. Creatinine Clearance 107 mL/min (70-130); Calcium 8.8 mg/dL (7.8-10.44); Carbon Dioxide 23 mmol/L (22-29); Chloride 106 mmol/L (98-107); Estimated GFR 100; Glucose 127 mg/dL (70-105); Potassium 4.2 mmol/L (3.5-5.1); Sodium 140 mmol/L (136-145)
[2024-05-17 09:09] VITALS: BP 133/78; TEMP 97.7
== END 2024-05-17 12:55 | disposition home or self-care (01) | DRG 202 ==
LOC: T4-A 10:21
PROVIDERS: ADMIT Internal Medicine; ATTEND Internal Medicine
PROC: 5A09357 Assistance with Respiratory Ventilation, Less than 24 Consecutive Hours, Continuous Positive Airway Pressure (ICD-10-PCS; principal; 2024-05-15)
DX: J45.901 Unspecified asthma with (acute) exacerbation (principal); J96.01 Acute respiratory failure with hypoxia; E78.5 Hyperlipidemia, unspecified; F41.9 Anxiety disorder, unspecified; F32.A Depression, unspecified; R91.1 Solitary pulmonary nodule; G47.33 Obstructive sleep apnea (adult) (pediatric); E66.811 Obesity, class 1; Z88.8 Allergy status to other drugs, medicaments and biological substances; Z68.33 Body mass index [BMI] 33.0-33.9, adult
CPT/HCPCS: 36415; 80048; 85025; 94640; 94660; J0456; J0696; J2919; J7050; J7620